=== PATIENT | female | born 1990 | race Caucasian/White ===

== ENCOUNTER 2018-03-25 09:57 | Outpatient (CLI) | payer OTHER | END 2018-03-25 10:55 | disposition home or self-care (01) | LOC: NST 09:57 | DX: Z34.02 Encounter for supervision of normal first pregnancy, second trimester (principal) ==

== ENCOUNTER 2018-04-01 09:38 | Outpatient (CLI) | payer OTHER | END 2018-04-01 10:36 | disposition home or self-care (01) | LOC: NST 09:38 | DX: O30.003 Twin pregnancy, unspecified number of placenta and unspecified number of amniotic sacs, third trimester (principal); Z34.83 Encounter for supervision of other normal pregnancy, third trimester ==

== ENCOUNTER 2018-04-09 10:48 | Outpatient (CLI) | payer OTHER ==
[2018-04-09] MEDS ORDERED: NIFE60TA3 PO (14:15)
[2018-04-09] MEDS ORDERED: PRENATAL 19 TA1 EACH PO (14:15)
== END 2018-04-09 11:44 | disposition home or self-care (01) ==
LOC: NST 10:48
DX: O30.003 Twin pregnancy, unspecified number of placenta and unspecified number of amniotic sacs, third trimester (principal); Z34.03 Encounter for supervision of normal first pregnancy, third trimester

== ENCOUNTER 2018-04-09 12:43 | Inpatient (IN) | payer OTHER ==
[~2018-04-09] VITALS: Ht 157.5 cm; Wt 1.4 kg
[2018-04-09] MEDS ORDERED: NIFE60TA3 PO (14:15)
[2018-04-09] MEDS ORDERED: PRENATAL 19 TA1 EACH PO (14:15)
== END 2018-04-25 13:41 | disposition home or self-care, planned readmission (81) | DRG 765 ==
LOC: LDR 12:43 → OB/GYN 12:43 → SURG-SUITE 04-22 18:49
PROVIDERS: Obstetrics & Gynecology
PROC: 4A1HXCZ Monitoring of Products of Conception, Cardiac Rate, External Approach (ICD-10-PCS; 2018-04-09)
PROC: BY4FZZZ Ultrasonography of Third Trimester, Single Fetus (ICD-10-PCS; 2018-04-14)
PROC: 4A033R1 Measurement of Arterial Saturation, Peripheral, Percutaneous Approach (ICD-10-PCS; 2018-04-22)
PROC: 10D00Z1 Extraction of Products of Conception, Low, Open Approach (ICD-10-PCS; principal; 2018-04-22 15:00)
DX: O60.14X2 Preterm labor third trimester with preterm delivery third trimester, fetus 2 (principal); O30.043 Twin pregnancy, dichorionic/diamniotic, third trimester; O64.1XX2 Obstructed labor due to breech presentation, fetus 2; Z3A.33 33 weeks gestation of pregnancy; Z37.2 Twins, both liveborn